=== PATIENT | male | born 2000 | race Two or more races ===

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

== ENCOUNTER 2022-03-13 02:20 | Emergency (ER) | payer OTHER, BC ==
[2022-03-13 03:05] VITALS: BP 143/88; PULSE 87; RESP 20; TEMP 97.9; BMI 19.9
[2022-03-13] MEDS ORDERED: IBUPROFEN 600 MG TABLET (FP) PO ONE ×2 (03:50→03:54)
[2022-03-13] MEDS ORDERED: DEXAMETHASONE SOD PHOSPHATE 10 MG/1 ML VIAL IM ONE (03:53)
[2022-03-13] MEDS ORDERED: DEXAMETHASONE SOD PHOSPHATE 10 MG/1 ML VIAL ONE (03:55)
[2022-03-13] MEDS ORDERED: ALBUTEROL SO4 2.5/IPRATROPIUM 0.5 INH SOL 3 ML VIAL.NEB. NEB ONE (04:12)
[2022-03-13] MEDS ORDERED: PENICILLIN G BENZATHINE 1,200,000 UNIT/2 ML PFS IM ONE ×2 (05:13→05:19)
== END 2022-03-13 05:38 | disposition home or self-care (01) ==
LOC: JER 02:20
PROC: 3E0233Z Introduction of Anti-inflammatory into Muscle, Percutaneous Approach (ICD-10-PCS; principal; 2022-03-13)
PROC: 3E02329 Introduction of Other Anti-infective into Muscle, Percutaneous Approach (ICD-10-PCS; 2022-03-13)
DX: J02.0 Streptococcal pharyngitis (principal); J09.X2 Influenza due to identified novel influenza A virus with other respiratory manifestations
CPT/HCPCS: 0241U-QW; 87651; 99284-25; J1100